=== PATIENT | male | born 1960 | race Two or more races ===

== ENCOUNTER 2019-03-25 10:35 | Emergency (ER) | payer MEDICAID ==
[~2019-03-25] VITALS: Ht 167.6 cm; Wt 77.1 kg
[2019-03-25 11:34] LABS: Urine Bacteria NONE SEEN /hpf (None Seen); Urine Blood Negative /uL (Negative); Urine Specific Gravity 1.022 (1.001-1.035); Urine WBC <1 /hpf (0 - 3)
[2019-03-25 12:10] LABS: Basophils # (auto) 0 uL; Eosinophils # (auto) 0.1 uL; Eosinophils % (auto) 2.7 % (0.0-7.0); Hematocrit 44.8 % (41.0-53.0); Hemoglobin 15.3 g/dL (13.5-17.5); Lymphocytes # (auto) 1.7 uL; Lymphocytes % (auto) 34.5 % (10.0-50.0); Mean Corpuscular Hemoglobin 31.9 pg (28.0-32.0); Mean Corpuscular Hgb Conc. 34.1 g/dL (32.0-36.0); Mean Corpuscular Volume 93.8 fL (80.0-100.0); Monocytes # (auto) 0.4 uL; Monocytes % (auto) 7.3 % (0.0-12.0); Neutrophils # (auto) 2.7 uL; Neutrophils % (auto) 54.5 % (37.0-80.0); Nucleated Red Blood Cells % 0.1 %; Platelet Count (auto) 219 10^3/uL (140-450); Red Blood Cells 4.78 10^6/uL (4.5-5.90); Red Cell Distribution Width 13.6 % (11.8-14.3); White Blood Cell 4.9 10^3/uL (4.4-10.8)
[2019-03-25 12:29] LABS: Albumin 3.8 g/dL (3.4-5.0); BUN/Creatinine Ratio 19.1; Calcium 8.7 mg/dL (8.5-10.1)
[2019-03-25 12:31] LABS: Bilirubin, Total 0.3 mg/dL (0.2-1.0); Total Protein 7.3 g/dL (6.4-8.2)
[2019-03-25 14:16] VITALS: BP 145/100
== END 2019-03-25 16:28 | disposition home or self-care (01) ==
LOC: ER 10:35
DX: R51 Headache (principal); R11.2 Nausea with vomiting, unspecified; M47.892 Other spondylosis, cervical region
CPT/HCPCS: 36415; 70450; 72125; 80053; 81001; 85025

== ENCOUNTER 2019-05-02 09:53 | Emergency (ER) | payer MEDICAID ==
[~2019-05-02] VITALS: Ht 152.4 cm; Wt 77.1 kg
[2019-05-02 10:37] LABS: Basophils # (auto) 0.1 uL; Eosinophils # (auto) 0.1 uL; Eosinophils % (auto) 1.9 % (0.0-7.0); Hematocrit 44.6 % (41.0-53.0); Hemoglobin 15.2 g/dL (13.5-17.5); Lymphocytes # (auto) 2.2 uL; Lymphocytes % (auto) 38.5 % (10.0-50.0); Mean Corpuscular Hemoglobin 31.7 pg (28.0-32.0); Mean Corpuscular Volume 93.1 fL (80.0-100.0); Monocytes # (auto) 0.5 uL; Monocytes % (auto) 8.3 % (0.0-12.0); Neutrophils # (auto) 2.9 uL; Neutrophils % (auto) 50.3 % (37.0-80.0); Nucleated Red Blood Cells % 0.1 %; Platelet Count (auto) 227 10^3/uL (140-450); Red Blood Cells 4.79 10^6/uL (4.5-5.90); Red Cell Distribution Width 13.8 % (11.8-14.3); White Blood Cell 5.8 10^3/uL (4.4-10.8)
[2019-05-02 10:49] LABS: Calcium 8.9 mg/dL (8.5-10.1)
[2019-05-02 10:51] LABS: Bilirubin, Total 0.3 mg/dL (0.2-1.0); Total Protein 7.6 g/dL (6.4-8.2)
[2019-05-02 10:56] LABS: Urine Bacteria NONE SEEN /hpf (None Seen); Urine Blood TRACE /uL (Negative); Urine Mucus FEW (None Seen); Urine Specific Gravity 1.028 (1.001-1.035); Urine WBC 1 /hpf (0 - 3)
[2019-05-02] MEDS ORDERED: SODIUM CHLORIDE 0.9% 1,000 ML IV ONE (11:30)
[2019-05-02 12:27] VITALS: BP 180/94
== END 2019-05-02 13:35 | disposition home or self-care (01) ==
LOC: ER 09:56
DX: S86.912A Strain of unspecified muscle(s) and tendon(s) at lower leg level, left leg, initial encounter (principal); S86.911A Strain of unspecified muscle(s) and tendon(s) at lower leg level, right leg, initial encounter; E86.0 Dehydration; X58.XXXA Exposure to other specified factors, initial encounter; Y93.89 Activity, other specified; Y99.8 Other external cause status; Y92.89 Other specified places as the place of occurrence of the external cause
CPT/HCPCS: 36415; 70450; 72131; 80053; 81001; 85025; 93005; 96360; 96361; 99284; J7030

== ENCOUNTER 2020-05-07 12:35 | Emergency (ER) | payer SELFPAY ==
[~2020-05-07] VITALS: Ht 160 cm; Wt 77.1 kg
[2020-05-07 12:48] VITALS: BP 179/98
[2020-05-07] MEDS ORDERED: SODIUM CHLORIDE 0.9% 1,000 ML IV ONE (12:51)
[2020-05-07 16:36] LABS: Basophils # (auto) 0 10 ^3/uL (0-0.2); Basophils % (auto) 0.8 % (0.0-2.0); Eosinophils # (auto) 0.2 10 ^3/uL (0-0.8); Hematocrit 47.7 % (41.0-53.0); Hemoglobin 15.8 g/dL (13.5-17.5); Lymphocytes # (auto) 2.3 10 ^3/uL (0.4-5.4); Lymphocytes % (auto) 42.8 % (10.0-50.0); Mean Corpuscular Hemoglobin 31.3 pg (28.0-32.0); Mean Corpuscular Hgb Conc. 33.2 g/dL (32.0-36.0); Mean Corpuscular Volume 94.3 fL (80.0-100.0); Monocytes # (auto) 0.4 10 ^3/uL (0-1.3); Neutrophils # (auto) 2.5 10 ^3/uL (1.6-8.6); Neutrophils % (auto) 46.4 % (37.0-80.0); Nucleated Red Blood Cells % 0.1 %; Platelet Count (auto) 235 10^3/uL (140-450); Red Blood Cells 5.06 10^6/uL (4.5-5.90); Red Cell Distribution Width 13.9 % (11.8-14.3); White Blood Cell 5.3 10^3/uL (4.4-10.8)
[2020-05-07 16:52] LABS: Albumin 3.9 g/dL (3.4-5.0); Anion Gap 6 (5-15); Blood Urea Nitrogen 14 mg/dL (7-18); Calcium 8.9 mg/dL (8.5-10.1); Carbon Dioxide 25 mmol/L (21-32); Chloride 108 mmol/L (98-107); Glucose 87 mg/dL (74-106); Sodium 139 mmol/L (136-145)
[2020-05-07 16:56] LABS: Alanine Aminotransferase 58 U/L (16-61); Alkaline Phosphatase 102 U/L (45-117); Aspartate Aminotransferase 28 U/L (15-37); BUN/Creatinine Ratio 15.2; Bilirubin, Total 0.2 mg/dL (0.2-1.0); GFR African American 108 mL/min; GFR Non-African American 89 mL/min; INR 1.01 (0.9-1.15); Total Protein 7.8 g/dL (6.4-8.2)
== END 2020-05-07 18:59 | disposition home or self-care (01) ==
LOC: ER 12:35
DX: K64.9 Unspecified hemorrhoids (principal); K62.5 Hemorrhage of anus and rectum
CPT/HCPCS: 36415; 71046; 74176; 80053; 84484; 85025; 85610; 85730; 86850; 86900; 86901

== ENCOUNTER 2022-06-17 08:42 | Emergency (ER) | payer MEDICARE, MEDICAID ==
[~2022-06-17] VITALS: Ht 167.6 cm; Wt 165.0 kg
[2022-06-17 09:30] VITALS: BP 169/79
[2022-06-17] MEDS ORDERED: NAP500T PO (10:41)
[2022-06-17] MEDS ORDERED: KETOROLAC TROMETH 60MG/2ML VIAL IM ONE (10:45)
== END 2022-06-17 12:27 | disposition home or self-care (01) ==
LOC: ER 08:42
DX: H11.32 Conjunctival hemorrhage, left eye (principal); G89.29 Other chronic pain; M25.552 Pain in left hip; Z79.899 Other long term (current) drug therapy
CPT/HCPCS: 96372; 99283; J1885

== ENCOUNTER 2023-05-01 15:36 | Emergency (ER) | payer MEDICARE, MEDICAID ==
[~2023-05-01] VITALS: Ht 157.5 cm; Wt 79.9 kg
[~2023-05-01 15:36] MED LIST: NAP500T PO; TRIA37.587 PO
[2023-05-01] MEDS ORDERED: HYDROcodone-ACET 5/325MG TAB PO ONE (16:45)
[2023-05-01] MEDS ORDERED: IBUP-1456 PO (17:40)
[2023-05-01 17:47] VITALS: BP 140/72
== END 2023-05-01 17:55 | disposition home or self-care (01) ==
LOC: ER 15:36
DX: M16.12 Unilateral primary osteoarthritis, left hip (principal); M24.452 Recurrent dislocation, left hip; I10 Essential (primary) hypertension
CPT/HCPCS: 73502

== ENCOUNTER → 2023-08-05 | Outpatient (CLI) | payer MEDICARE ==
[~2023-08-05] MED LIST changes: +IBUP-1456 PO
[2023-08-05 09:44] LABS: Urine WBC None Seen /hpf (0 - 3)
[2023-08-05 09:48] LABS: Basophils # (auto) 0 10 ^3/uL (0-0.2); Basophils % (auto) 0.5 % (0.0-2.0); Eosinophils # (auto) 0.2 10 ^3/uL (0-0.8); Eosinophils % (auto) 4.6 % (0.0-7.0); Hematocrit 47.2 % (41.0-53.0); Hemoglobin 15.8 g/dL (13.5-17.5); Lymphocytes # (auto) 2.3 10 ^3/uL (0.4-5.4); Lymphocytes % (auto) 46.3 % (10.0-50.0); Mean Corpuscular Hemoglobin 31.9 pg (28.0-32.0); Mean Corpuscular Hgb Conc. 33.5 g/dL (32.0-36.0); Mean Corpuscular Volume 95.3 fL (80.0-100.0); Monocytes # (auto) 0.4 10 ^3/uL (0-1.3); Monocytes % (auto) 7.1 % (0.0-12.0); Neutrophils # (auto) 2.1 10 ^3/uL (1.6-8.6); Neutrophils % (auto) 41.5 % (37.0-80.0); Nucleated Red Blood Cells % 0.2 %; Red Blood Cells 4.95 10^6/uL (4.5-5.90); Red Cell Distribution Width 13.6 % (11.8-14.3)
[2023-08-05 10:00] LABS: Urine Bacteria NONE SEEN /hpf (None Seen); Urine Blood Negative /uL (Negative); Urine Clarity Clear (Clear); Urine Color Yellow (Yellow); Urine Mucus FEW (None Seen); Urine Protein, UAD Negative (Negative); Urine Specific Gravity 1.023 (1.001-1.035); Urine Urobilinogen Normal (Negative)
[2023-08-05 10:25] LABS: Alanine Aminotransferase 116 U/L (7-40); Albumin 4.6 g/dL (3.2-4.8); Alkaline Phosphatase 89 U/L (46-116); Anion Gap 5 (5-15); Aspartate Aminotransferase 59 U/L (13-40); Blood Urea Nitrogen 11 mg/dL (9-23); Calcium 9.6 mg/dL (8.5-10.1); Carbon Dioxide 29 mmol/L (20-30); Chloride 105 mmol/L (98-107); Glucose 107 mg/dL (74-106); LDL Cholesterol 154 mg/dL (< 100); Potassium 4.2 mmol/L (3.5-5.1); Sodium 139 mmol/L (136-145); Triglycerides 132 mg/dL (< 150)
[2023-08-05 10:26] LABS: Cholesterol 207 mg/dL (< 200); HDL Cholesterol 39 mg/dL (40-59)
[2023-08-05 10:27] LABS: Bilirubin, Total 0.6 mg/dL (0.2-1.0); Total Protein 7.4 g/dL (5.7-8.2)
== END | disposition home or self-care (01) ==
LOC: LAB 09:34
PROVIDERS: ATTEND Nurse Practitioner
DX: I10 Essential (primary) hypertension (principal); E78.5 Hyperlipidemia, unspecified; E03.9 Hypothyroidism, unspecified; R73.9 Hyperglycemia, unspecified; R35.1 Nocturia
CPT/HCPCS: 36415; 80053; 80061; 81001; 83036; 84153; 84443; 85025

== ENCOUNTER 2023-08-26 06:12 | Inpatient (IN) | payer MEDICARE ==
[2023-08-21 11:09] LABS: Basophils # (auto) 0 10 ^3/uL (0-0.2); Basophils % (auto) 0.5 % (0.0-2.0); Eosinophils # (auto) 0.2 10 ^3/uL (0-0.8); Eosinophils % (auto) 3.7 % (0.0-7.0); Hematocrit 46.9 % (41.0-53.0); Hemoglobin 15.9 g/dL (13.5-17.5); Lymphocytes # (auto) 2.8 10 ^3/uL (0.4-5.4); Lymphocytes % (auto) 47.2 % (10.0-50.0); Mean Corpuscular Hemoglobin 32.1 pg (28.0-32.0); Mean Corpuscular Hgb Conc. 33.9 g/dL (32.0-36.0); Mean Corpuscular Volume 94.6 fL (80.0-100.0); Monocytes # (auto) 0.4 10 ^3/uL (0-1.3); Monocytes % (auto) 7.3 % (0.0-12.0); Neutrophils # (auto) 2.4 10 ^3/uL (1.6-8.6); Neutrophils % (auto) 41.3 % (37.0-80.0); Red Blood Cells 4.96 10^6/uL (4.5-5.90); White Blood Cell 5.8 10^3/uL (4.4-10.8)
[2023-08-21 11:17] LABS: Urine Bacteria NONE SEEN /hpf (None Seen); Urine Blood Negative /uL (Negative); Urine Clarity Clear (Clear); Urine Color Yellow (Yellow); Urine Mucus FEW (None Seen); Urine Protein, UAD Negative (Negative); Urine Specific Gravity 1.025 (1.001-1.035); Urine Urobilinogen Normal (Negative); Urine WBC <1 /hpf (0 - 3)
[2023-08-21 11:25] LABS: INR 1.04 (0.9-1.15); Partial Thromboplastin Time 28.7 SEC (24.5-34.5); Prothrombin Time 10.9 sec (9.3-11.8)
[2023-08-21 12:38] LABS: Alanine Aminotransferase 99 U/L (7-40); Albumin 4.6 g/dL (3.2-4.8); Alkaline Phosphatase 101 U/L (46-116); Anion Gap 6 (5-15); Aspartate Aminotransferase 53 U/L (13-40); BUN/Creatinine Ratio 12.4 (10.0-20.0); Bilirubin, Total 0.8 mg/dL (0.2-1.0); Blood Urea Nitrogen 12 mg/dL (9-23); Calcium 9.5 mg/dL (8.7-10.4); Carbon Dioxide 28 mmol/L (20-30); Chloride 104 mmol/L (98-107); Glucose 94 mg/dL (74-106); Potassium 4.1 mmol/L (3.5-5.1); Sodium 138 mmol/L (136-145); Total Protein 7.7 g/dL (5.7-8.2)
[~2023-08-26] VITALS: Ht 162.6 cm; Wt 74.2 kg
[2023-08-26] MEDS ORDERED: ceFAZolin 1GM/50ML 100 ML IV ONE (06:27)
[2023-08-26] MEDS ORDERED: VANCOMYCIN HCL 1000 MG VL ONE (06:38)
[2023-08-26] MEDS ORDERED: BUPIVACAINE HCL 0 ML ONE (06:40)
[2023-08-26] MEDS ORDERED: TRANEXAMIC ACID 20 ML ONE (06:40)
[2023-08-26] MEDS ORDERED: DexAMETHasone SOD PHOS 4 MG/1ML SDV INJ ONE (06:49)
[2023-08-26] MEDS ORDERED: GLYCOPYRROLATE 0.2 MG/ML 1ML VIAL ONE (06:59)
[2023-08-26] MEDS ORDERED: PROPOFOL 10 MG/ML 20 ML IV ONE ×2 (06:59→08:48)
[2023-08-26] MEDS ORDERED: KETOROLAC TROMETH 60MG/2ML VIAL ONE (06:59)
[2023-08-26] MEDS ORDERED: ONDANSETRON HCL 4 MG/2 ML VIAL ONE (06:59)
[2023-08-26] MEDS ORDERED: DexAMETHasone SOD PHOS 10MG/1ML VIAL INJ ONE (06:59)
[2023-08-26] MEDS ORDERED: LIDOCAINE 1% INJ PF 5ML AMP ONE (07:00)
[2023-08-26] MEDS ORDERED: ACETAMINOPHEN IV 100 ML IV ONE (07:13)
[2023-08-26] MEDS ORDERED: GABAPENTIN 400 MG CAP PO ONE (07:30)
[2023-08-26] MEDS ORDERED: CELECOXIB 100 MG CAP PO ONE (07:30)
[2023-08-26] MEDS ORDERED: ACETAMINOPHEN IV 1000 MG/100ML (10MG/ML) IV ONE (07:30)
[2023-08-26] MEDS ORDERED: CELECOXIB 100 MG CAP ONE (07:49)
[2023-08-26] MEDS ORDERED: GABAPENTIN 400 MG CAP ONE (07:49)
[2023-08-26] MEDS ORDERED: SODIUM CHLORIDE LOCK 10 ML ONE ×3 (08:03→08:22)
[2023-08-26] MEDS ORDERED: PHENYLEPHRINE HCL 10 MG/ML VL ONE (08:23)
[2023-08-26] MEDS ORDERED: ePHEDrine SULFATE 50 MG/ML AMP ONE (08:47)
[2023-08-26 09:21] VITALS: PULSE 76; RESP 17; O2SAT 99
[2023-08-26] MEDS ORDERED: HYDROmorphone HCL 2 MG/ML VL/or syr IV PRN (09:30)
[2023-08-26] MEDS ORDERED: oxyCODONE HCL 5MG TAB PO PRN (09:30)
[2023-08-26] MEDS ORDERED: NALOXONE HCL 0.4 MG/ML VIAL IV PRN (09:30)
[2023-08-26] MEDS ORDERED: FLUMAZENIL 0.1 MG/ML INJ 10ML MDV IV PRN (09:30)
[2023-08-26] MEDS ORDERED: ePHEDrine SULFATE 50 MG/ML AMP IV PRN (09:30)
[2023-08-26] MEDS ORDERED: LABETALOL HCL 5 MG/ML 4ML SYRINGE IV PRN (09:30)
[2023-08-26] MEDS ORDERED: ONDANSETRON HCL 4 MG/2 ML VIAL IV PRN (09:30)
[2023-08-26] MEDS ORDERED: fentaNYL CITRATE 100 MCG/2 ML VL IV PRN (09:30)
[2023-08-26] MEDS ORDERED: hydrALAZINE HCL 20 MG/ML VL IV PRN (09:30)
[2023-08-26] MEDS ORDERED: ceFAZolin 1GM/50ML 50 ML IV SCH ×3 (09:45→14:45)
[2023-08-26] MEDS ORDERED: NITROGLYCERIN 0.4 MG SL TAB SL PRN (09:45)
[2023-08-26] MEDS: DOCUSATE SOD 100 MG CAP PO SCH ×2 (10:00→22:33)
[2023-08-26] MEDS ORDERED: ENOXAPARIN SOD 30 MG/0.3 ML SYRINGE SC SCH ×2 (10:00→22:00)
[2023-08-26 13:35] VITALS: BP 138/92; PULSE 64; RESP 20; TEMP 98.9; O2SAT 95
[2023-08-26] MEDS: LACTATED RINGER'S 1,000 ML IV SCH ×2 (13:53→22:37)
[2023-08-26 17:00] VITALS: BP 145/90; PULSE 66; RESP 20; TEMP 98.2; O2SAT 95
[2023-08-26] MEDS: KETOROLAC TROMETH 30 MG/ML 1ML VIAL IV SCH (18:00)
[2023-08-26 22:00] VITALS: BP 112/70; PULSE 66; RESP 22; TEMP 97.5; O2SAT 96
[2023-08-26] MEDS: ACETAMINOPHEN 325 MG TAB PO PRN (22:31)
[2023-08-26] MEDS: BISACODYL 5 MG EC TAB PO PRN (22:33)
[2023-08-26] MEDS: ceFAZolin 1GM/50ML 50 ML IV SCH (22:34)
[2023-08-27] MEDS ORDERED: KETOROLAC TROMETH 60MG/2ML VIAL ONE (01:58)
[2023-08-27] MEDS: ceFAZolin 1GM/50ML 50 ML IV SCH (02:00)
[2023-08-27] MEDS: KETOROLAC TROMETH 30 MG/ML 1ML VIAL IV SCH (02:55)
[2023-08-27 05:00] VITALS: BP 108/76; PULSE 64; RESP 20; TEMP 97.9; O2SAT 97
[2023-08-27] MEDS ORDERED: ceFAZolin 1GM/50ML 50 ML IV ONE (05:30)
[2023-08-27 06:11] LABS: Anion Gap 8 (5-15); Carbon Dioxide 24 mmol/L (20-30); Chloride 106 mmol/L (98-107); Potassium 4.1 mmol/L (3.5-5.1); Sodium 138 mmol/L (136-145)
[2023-08-27 06:17] LABS: BUN/Creatinine Ratio 11.2 (10.0-20.0); Blood Urea Nitrogen 10 mg/dL (9-23); Glucose 157 mg/dL (74-106)
[2023-08-27 06:23] LABS: Basophils # (auto) 0 10 ^3/uL (0-0.2); Basophils % (auto) 0.1 % (0.0-2.0); Eosinophils # (auto) 0 10 ^3/uL (0-0.8); Hematocrit 39.6 % (41.0-53.0); Hemoglobin 13.4 g/dL (13.5-17.5); Lymphocytes # (auto) 1.4 10 ^3/uL (0.4-5.4); Lymphocytes % (auto) 12.3 % (10.0-50.0); Mean Corpuscular Hemoglobin 31.8 pg (28.0-32.0); Mean Corpuscular Hgb Conc. 33.8 g/dL (32.0-36.0); Mean Corpuscular Volume 94.2 fL (80.0-100.0); Monocytes # (auto) 0.7 10 ^3/uL (0-1.3); Neutrophils # (auto) 9.3 10 ^3/uL (1.6-8.6); Neutrophils % (auto) 81.6 % (37.0-80.0); Red Blood Cells 4.21 10^6/uL (4.5-5.90); Red Cell Distribution Width 13.1 % (11.8-14.3); White Blood Cell 11.4 10^3/uL (4.4-10.8)
[2023-08-27] MEDS: ACETAMINOPHEN 325 MG TAB PO PRN (06:38)
[2023-08-27 08:00] VITALS: PULSE 74; RESP 18
[2023-08-27 09:09] VITALS: BP 112/69; PULSE 66; RESP 18; TEMP 97.4; O2SAT 96
[2023-08-27] MEDS: ENOXAPARIN SOD 30 MG/0.3 ML SYRINGE SC SCH ×2 (11:24→21:12)
[2023-08-27] MEDS: DOCUSATE SOD 100 MG CAP PO SCH ×2 (11:24→21:11)
[2023-08-27] MEDS: KETOROLAC TROMETH 60MG/2ML VIAL IV SCH ×3 (11:27→21:11)
[2023-08-27] MEDS ORDERED: IBUP-1456 PO (15:46)
[2023-08-27 16:44] VITALS: BP 123/77; PULSE 65; RESP 18; TEMP 98.3; O2SAT 96
[2023-08-27 22:00] VITALS: BP 138/82; PULSE 71; RESP 18; TEMP 98.9; O2SAT 96
[2023-08-28] MEDS: KETOROLAC TROMETH 60MG/2ML VIAL IV SCH ×4 (04:43→22:52)
[2023-08-28] MEDS: BISACODYL 5 MG EC TAB PO PRN (04:50)
[2023-08-28 05:00] VITALS: BP 121/72; PULSE 70; RESP 18; TEMP 99; O2SAT 95
[2023-08-28 06:13] LABS: Hemoglobin 13.4 g/dL (13.5-17.5)
[2023-08-28 08:00] VITALS: PULSE 70; RESP 18
[2023-08-28 08:44] VITALS: BP 129/77; PULSE 70; RESP 20; TEMP 98.2; O2SAT 94
[2023-08-28] MEDS: DOCUSATE SOD 100 MG CAP PO SCH ×2 (10:35→22:00)
[2023-08-28] MEDS: ENOXAPARIN SOD 30 MG/0.3 ML SYRINGE SC SCH ×2 (10:35→22:54)
[2023-08-28 12:27] VITALS: BP 143/75; PULSE 79; RESP 20; TEMP 97.9; O2SAT 95
[2023-08-28 16:33] VITALS: BP 144/90; PULSE 77; RESP 20; TEMP 98.2; O2SAT 92
[2023-08-28 22:00] VITALS: BP_SYST 126; BP_SYST 142; BP_DIAS 73; BP_DIAS 77; PULSE 79; PULSE 85; RESP 18; RESP 20; TEMP 97.7; TEMP 99.4; O2SAT 95; O2SAT 98
[2023-08-29] MEDS: KETOROLAC TROMETH 60MG/2ML VIAL IV SCH ×4 (04:17→20:47)
[2023-08-29 05:00] VITALS: BP 124/77; PULSE 77; RESP 18; TEMP 97.7; O2SAT 94
[2023-08-29 06:35] LABS: Hematocrit 39.5 % (41.0-53.0); Hemoglobin 13.5 g/dL (13.5-17.5)
[2023-08-29 09:00] VITALS: BP 116/81; PULSE 73; RESP 18; TEMP 98; O2SAT 93
[2023-08-29] MEDS: DOCUSATE SOD 100 MG CAP PO SCH ×2 (09:34→21:11)
[2023-08-29] MEDS: ENOXAPARIN SOD 30 MG/0.3 ML SYRINGE SC SCH ×2 (09:34→21:11)
[2023-08-29 13:00] VITALS: BP 119/79; PULSE 63; RESP 16; TEMP 98.2; O2SAT 95
[2023-08-29 17:00] VITALS: BP 149/87; PULSE 75; RESP 17; TEMP 98.3; O2SAT 97
[2023-08-29 20:00] VITALS: PULSE 94; RESP 17; O2SAT 95
[2023-08-29 22:00] VITALS: BP 108/73; PULSE 94; RESP 17; TEMP 98.7; O2SAT 95
[2023-08-30] MEDS: KETOROLAC TROMETH 60MG/2ML VIAL IV SCH ×2 (03:11→09:00)
[2023-08-30 05:00] VITALS: BP 106/65; PULSE 77; RESP 16; TEMP 98.5; O2SAT 96
[2023-08-30 08:00] VITALS: PULSE 61; RESP 16; O2SAT 95
[2023-08-30 08:32] VITALS: BP 129/69; PULSE 61; RESP 16; TEMP 98.1; O2SAT 95
[2023-08-30] MEDS: DOCUSATE SOD 100 MG CAP PO SCH (10:00)
[2023-08-30] MEDS: ENOXAPARIN SOD 30 MG/0.3 ML SYRINGE SC SCH (10:00)
== END 2023-08-30 08:30 | DRG 470 ==
LOC: SUR 06:12 → OVERFLOW 09:51 → EAST 13:13
PROVIDERS: ADMIT Surgery; ATTEND Internal Medicine
PROC: 0SRB06Z Replacement of Left Hip Joint with Oxidized Zirconium on Polyethylene Synthetic Substitute, Open Approach (ICD-10-PCS; principal; 2023-08-26 08:04)
DX: M16.52 Unilateral post-traumatic osteoarthritis, left hip (principal); I10 Essential (primary) hypertension; E66.3 Overweight; Z68.28 Body mass index [BMI] 28.0-28.9, adult
CPT/HCPCS: 36415; 72170; 80048; 80053; 81001; 85014; 85018; 85025; 85610; 85730; 86850; 86900; 86901; 97110; 97116; 97163; 97530; C1776; G0378; J0131; J0690; J1100; J1885; J2405; J2704; J3490

== ENCOUNTER 2025-06-23 12:37 | Emergency (ER) | payer MEDICARE ==
[~2025-06-23] VITALS: Ht 165.1 cm; Wt 72.9 kg
[~2025-06-23 12:37] MED LIST changes: -NAP500T PO; -TRIA37.587 PO
--- NOTE | 2025-06-23 13:10 | ED.PDOC ---
History of Present Illness HPI Comments 65 y.o male presents to the ED for a chief complaint of ongoing generalized fatigue and malaise that hinders his daily activities. Patient also reports weight loss, noting a decrease from 182lbs to 166lbs within a span of 2 months associated with increased thirst and urinary frequency.. Patient does mention ef forts to eat healthier and work out, but denies any excessive caloric deficit or workout regimen. Patient reports a past history of surgical intervention on his left hip for posttraumatic arthritis on 08/26/23 but denied any pre-existing diagnosis of HTN. During his last hospital visit for the hip surgery, he was prescribed HTN medication, which he self-discontinued at home, stating he no longer felt it was necessary. The patient has not seen his PCP as he does not know who is his doctor. He has not f/u with a PCP either before or after the hip surgery. Additionally, patient reports experiencing dizziness and increased weakness yesterday after finishing a meal and drinking a soda. Chief Complaint: High Blood Pressure Time Seen by MD: 12:52 Primary Care Provider: NONE Reviewed Notes: Nurses Notes, Medications, Allergies Allergies: Coded Allergies: NO KNOWN ALLERGIES (Unverified , 03/25/19) Home Meds Active Scripts Metformin Hydrochloride (Metformin Hcl) 500 Mg Tab, 1 TAB PO BID, #60 TAB 3 Refills Prov:ANTON BARNES MD 06/23/25 Losartan Potassium (Losartan Potassium) 50 Mg Tab, 1 TAB PO DAILY, #30 TAB 5 Refills Prov:ANTON BARNES MD 06/23/25 Reported Medications Ibuprofen (Ibuprofen) 800 Mg Tab, 800 MG PO PRN, MG 08/27/23 Information Source: Patient Mode of Arrival: Ambulatory Severity: Moderate Timing: Came on: Gradually Duration: Since onset Past Medical History PAST MEDICAL HISTORY: HTN Surgical History (Other): L PAOLO for posttraumatic arthritis. Family History Family History: Reviewed,noncontributory to illness Social History Smoker: Non-Smoker Alcohol: Occasionally Drugs: Denies Drug Use Lives In: Home Constitutional: reports: fatigue, weakness; denies: chills, diaphoresis, fever, malaise, sweats, others EENTM: denies: blurred vision, double vision, ear bleeding, ear discharge, ear drainage, ear pain, ear ringing, eye pain, eye redness, hearing loss, mouth pain, mouth swelling, nasal discharge, nose bleeding, nose congestion, nose pain, photophobia, tearing, throat pain, throat swelling, voice changes, others Respiratory: denies: cough, hemoptysis, orthopnea, SOB at rest, shortness of breath, SOB with excertion, stridor, wheezing, others Cardiovascular: denies: chest pain, dizzy spells, diaphoresis, Dyspnea on exertion, edema, irregular heart beat, left arm pain, lightheadedness, palpitations, PND, syncope, others Gastrointestinal: denies: abdomen distended, abdominal pain, blood streaked bowels, constipated, diarrhea, dysphagia, difficulty swallowing, hematemesis, melena, nausea, poor appetite, poor fluid intake, rectal bleeding, rectal pain, vomiting, others Genitourinary: denies: burning, dysuria, flank pain, frequency, hematuria, incontinence, penile discharge, penile sore, pain, testicle pain, testicle swelling, urgency, others Neurological: reports: dizziness; denies: fainting, headache, left sided numbness, left sided weakness, numbness, paresthesia, pre-existing deficit, right sided numbness, right sided weakness, seizure, speech problems, tingling, tremors, weakness, others Musculoskeletal: denies: back pain, gout, joint pain, joint swelling, muscle pain, muscle stiffness, neck pain, others Integumetry: denies: bruises, change in color, change in hair/nails, dryness, laceration, lesions, lumps, rash, wounds, others Allergic/Immunocompromised: denies: Difficulty Healing, Frequent Infections, Hives, Itching, others Hematologic/Lymphatic: denies: anemia, blood clots, easy bleeding, easy bruising, swollen glands, others Endocrine: denies: excessive hunger, excessive sweating, excessive thirst, excessive urination, flushing, intolerance to cold, intolerance to heat, unex plained weight gain, unexplained weight loss, others Psychiatric: denies: anxiety, bipolar disorder, depression, hopeless, panic disorder, schizophrenia, sleepless, suicidal, others All Other Systems: Reviewed and Negative Physical Exam General Appearance: No Apparent Distress HEENT: Other (Pupils and face symmetric. Moist mucous membranes.) Neck: Full Range of Motion, Normal Inspection Respiratory: Lungs Clear, No Accessory Muscle Use, No Respiratory Distress, Normal Breath Sounds Cardiovascular: No Edema, No JVD, Regular Rate/Rhythm Breast Exam: Deferred Gastrointestinal: Non Tender, Soft Genitalia: Deferred Pelvic: Deferred Rectal: Deferred Extremities: Normal inspection, Normal range of motion, Non-tender, No pedal edema Neurologic: Alert (Oriented x4), Normal Affect, Normal Mood, Other (Ambulatory) Cerebellar Function: NOT DONE Reflexes: NOT DONE Skin: Dry, Normal Color, Warm Lymphatic: NOT DONE Was a procedure done? Was a procedure done?: No Differential Dx Considerations may include: Postprandial hypotension, Essential HTN, accelerated HTN,. renal disease, CHF, MD, among others X-Ray, Labs, Meds, VS Vital Signs Date Time Temp Pulse Resp B/P (MAP) Pulse Ox O2 Delivery O2 Flow Rate FiO2 06/23/25 12:39 97.2 72 18 174/111 100 97.2 Lab Test 06/23/25 14:19 06/23/25 14:15 06/23/25 13:30 Range/Units Troponin I High Sensitivity < 3 L < 3 L </=54 ng/L Urine Color Yellow Yellow Urine Clarity Clear Clear Urine pH 5.0 5.0-9.0 Urine Specific [place] 1.043 H 1.001-1.035 Urine Protein Trace H Negative Urine Ketones 2+ H Negative Urine Blood Negative Negative /uL Urine Nitrite Negative Negative Urine Bilirubin Negative Negative Urine Urobilinogen Normal Negative mg/dL Urine Leukocyte Esterase Negative Negative /uL Urine RBC 10 0 - 3 /hpf Urine Microscopic WBC 2 0-3 /HPF Urine Squamous Epithelial Cells None seen <5 /hpf Urine Bacteria None seen None Seen /hpf Urine Mucus Few None Seen Urine Glucose 4+ H Normal mg/dL White Blood Count 4.9 4.4-10.8 10^3/uL Red Blood Count 5.16 4.5-5.90 10^6/uL Hemoglobin 16.0 13.5-17.5 g/dL Hematocrit 46.8 41.0-53.0 % Mean Corpuscular Volume 90.8 80.0-100.0 fL Mean Corpuscular Hemoglobin 31.0 28.0-32.0 pg Mean Corpuscular Hemoglobin Concent 34.1 32.0-36.0 g/dL Red Cell Distribution Width 13.5 11.8-14.3 % Platelet Count 223 140-450 10^3/uL Mean Platelet Volume 9.2 6.9-10.8 fL Neutrophils (%) (Auto) 57.3 37.0-80.0 % Lymphocytes (%) (Auto) 35.2 10.0-50.0 % Monocytes (%) (Auto) 5.2 0.0-12.0 % Eosinophils (%) (Auto) 1.9 0.0-7.0 % Basophils (%) (Auto) 0.4 0.0-2.0 % Neutrophils # (Auto) 2.8 1.6-8.6 10 ^3/uL Lymphocytes # (Auto) 1.7 0.4-5.4 10 ^3/uL Monocytes # (Auto) 0.3 0-1.3 10 ^3/uL Eosinophils # (Auto) 0.1 0-0.8 10 ^3/uL Basophils # (Auto) 0 0-0.2 10 ^3/uL Nucleated Red Blood Cells 0.1 % Sodium Level 138 136-145 mmol/L Potassium Level 3.8 3.5-5.1 mmol/L Chloride Level 104 98-107 mmol/L Carbon Dioxide Level 22 20-31 mmol/L Anion Gap 12 5-15 Blood Urea Nitrogen 11 9-23 mg/dL Creatinine 0.93 0.700-1.30 mg/dL Glomerular Filtration Rate Calc 92 >90 mL/min BUN/Creatinine Ratio 11.8 10.0-20.0 Serum Glucose 267 H 74-106 mg/dL Calcium Level 9.4 8.7-10.4 mg/dL B-Type Natriuretic Peptide 7.10 0-100 pg/mL PROCEDURE(s): CXRP - CHEST PORTABLE REASON: High blood pressure, general weakness ORDER NUMBER(s): [id number], ACCESSION NUMBER(s): [id number] CLINICAL HISTORY: High blood pressure, general weakness TECHNIQUE: Single view of the chest was obtained. COMPARISON: CHEST TWO VIEWS ROUTINE on DOS: 05/07/20 FINDINGS: The heart size and pulmonary vasculature are normal. The lungs are clear. IMPRESSION: NO ACUTE CARDIOPULMONARY PROCESS. X-Ray, Labs, Meds, VS Comment 65-year-old male with a history of hypertension presenting complaining of fatigue, weight loss, increase fluid intake and urinary frequency. At triage patient was found to have elevated blood pressure Vitals remarkable for BP 174/111 Exam unremarkable Rhythm strip independently interpreted by me: Sinus rhythm, rate 72, no ectopy. Chest x-ray unremarkable CBC unremarkable, basic metabolic panel remarkable for glucose 267, BNP and 2 serial troponins negative, UA positive for protein, ketones and 4+ glucose Patient treated with the following in the ED: Hydralazine 10 mg p.o., metformin 500 mg p.o. Time of 1ST Reevaluation: 13:01 Reevaluation 1ST: Unchanged Patient Education/Counseling: Diagnosis, Treatment, Prognosis Family Education/Counseling: No Family Present SEPSIS Sepsis Screen Date sepsis recognized/suspect: Jun 23, 2025 Time Sepsis recognized/suspect: 1242 Recent Procedure: No On Antibiotic Therapy: No Respiratory Rate >20: No Heart Rate >90: No Temp<36 C (96.8 F) or >38.3 C: No SBP <90 or MAP <65 mmHG: No New Acute Mental Status Change: No Is the patient on CPAP, BIPAP,: No Physician Orders Chest Portable (06/23/25 13:15) Electrocardigram (06/23/25 13:15) Vital Signs Date Time Temp Pulse Resp B/P (MAP) Pulse Ox O2 Delivery O2 Flow Rate FiO2 06/23/25 12:39 97.2 72 18 174/111 100 97.2 Laboratory Tests Test 06/23/25 13:30 White Blood Count 4.9 10^3/uL (4.4-10.8) Departure 1 Departure Time of Disposition: 15:25 Impression: Primary Impression: HTN (hypertension) Qualified Codes: I10 - Essential (primary) hypertension Additional Impression: Hyperglycemia Disposition: 01 HOME / SELF CARE / HOMELESS Condition: Stable Additional Instructions: Your blood tests showed that your blood sugar was elevated, indicating you are possibly diabetic. This may be the cause of many of your symptoms. I have prescribed medication for blood pressure control and diabetes. Follow-up to establish care with a primary physician within the next 2 days for further evaluation. Return to ER for persistent or worsening symptoms. e-Prescriptions Metformin Hydrochloride (Metformin Hcl) 500 Mg Tab 1 TAB PO BID, #60 TAB 3 Refills Prov: ANTON BARNES MD 06/23/25 Losartan Potassium (Losartan Potassium) 50 Mg Tab 1 TAB PO DAILY, #30 TAB 5 Refills Prov: ANTON BARNES MD 06/23/25 Discharged With: Relative Critical Care Note Critical Care Time?: No Stability Stability form required: No Heart Score Heart Score: Heart Score Response (Comments) Value History N/A 0 EKG N/A 0 Age N/A 0 Risk Factors N/A 0 Troponin N/A 0 Total 0 I personally scribed for ANTON BARNES MD ([facility]) on 06/23/25 at 13 :10. Electronically submitted by Preeti Yanes ([facility]). ANTON BARNES MD Jun 23, 2025 13:10
--- NOTE | 2025-06-23 13:44 | DVH ---
CLINICAL HISTORY: High blood pressure, general weakness TECHNIQUE: Single view of the chest was obtained. COMPARISON: CHEST TWO VIEWS ROUTINE on DOS: 05/07/20 FINDINGS: The heart size and pulmonary vasculature are normal. The lungs are clear. IMPRESSION: NO ACUTE CARDIOPULMONARY PROCESS.
[2025-06-23 13:45] LABS: Hematocrit 46.8 % (41.0-53.0); Hemoglobin 16.0 g/dL (13.5-17.5); Mean Corpuscular Hemoglobin 31.0 pg (28.0-32.0); Mean Corpuscular Volume 90.8 fL (80.0-100.0); Nucleated Red Blood Cells % 0.1 %
[2025-06-23 13:51] LABS: Chloride 104 mmol/L (98-107); Potassium 3.8 mmol/L (3.5-5.1); Sodium 138 mmol/L (136-145)
[2025-06-23 13:52] LABS: Anion Gap 12 (5-15); Calcium 9.4 mg/dL (8.7-10.4); Carbon Dioxide 22 mmol/L (20-31)
[2025-06-23 13:57] LABS: BUN/Creatinine Ratio 11.8 (10.0-20.0); Blood Urea Nitrogen 11 mg/dL (9-23)
[2025-06-23 13:59] LABS: Glucose 267 mg/dL (74-106)
[2025-06-23 14:58] LABS: Urine Protein, UAD TRACE (Negative)
[2025-06-23] MEDS ORDERED: LOSA-534 PO (15:28)
[2025-06-23] MEDS ORDERED: METF-370 PO (15:28)
[2025-06-23 16:03] VITALS: BP 152/87; PULSE 88; RESP 18; TEMP 97.9; O2SAT 97
== END 2025-06-23 16:02 | disposition home or self-care (01) ==
LOC: ER 12:37
DX: I10 Essential (primary) hypertension (principal); R73.9 Hyperglycemia, unspecified; F10.90 Alcohol use, unspecified, uncomplicated; Z79.899 Other long term (current) drug therapy; Z79.84 Long term (current) use of oral hypoglycemic drugs; Z98.890 Other specified postprocedural states; Y90.9 Presence of alcohol in blood, level not specified
CPT/HCPCS: 36415; 71045; 80048; 81001; 83880; 84484; 85025